=== PATIENT | female | born 1960 | race Caucasian/White ===

== ENCOUNTER 2018-08-03 09:36 | Emergency (ER) | payer MEDICARE, MEDICAID ==
[~2018-08-03] VITALS: Ht 167.6 cm; Wt 57.7 kg
[~2018-08-03 09:36] MED LIST: CLIN300C11 PO; NO HOME MEDS; ONDA4TAB12 PO; RANI150T44 PO
[2018-08-03 09:41] VITALS: BP 127/84
[2018-08-03] MEDS ORDERED: CLIN300C85 PO (10:00)
[2018-08-03] MEDS ORDERED: TRAM50TA2 PO (10:00)
[2018-08-03] MEDS ORDERED: traMADol 50MG tablet PO ONE (10:05)
== END 2018-08-03 10:14 | disposition home or self-care (01) ==
LOC: ER 09:36
DX: L03.113 Cellulitis of right upper limb (principal); Z90.49 Acquired absence of other specified parts of digestive tract; Z98.890 Other specified postprocedural states; Z60.2 Problems related to living alone; Z88.2 Allergy status to sulfonamides; Z88.5 Allergy status to narcotic agent; Z91.048 Other nonmedicinal substance allergy status; Z79.2 Long term (current) use of antibiotics; Z79.899 Other long term (current) drug therapy
CPT/HCPCS: 99284

== ENCOUNTER 2018-08-03 23:15 | Emergency (ER) | payer MEDICARE, MEDICAID ==
[~2018-08-03] VITALS: Ht 167.6 cm; Wt 57.7 kg
[~2018-08-03 23:15] MED LIST changes: +CLIN300C85 PO; +TRAM50TA2 PO
[2018-08-03 23:32] VITALS: BP 114/70
== END 2018-08-04 00:13 | disposition left against medical advice (07) ==
LOC: ER 23:16
DX: R11.0 Nausea (principal); Z53.21 Procedure and treatment not carried out due to patient leaving prior to being seen by health care provider

== ENCOUNTER 2018-09-24 18:58 | Emergency (ER) | payer MEDICARE, MEDICAID ==
[~2018-09-24] VITALS: Ht 162.6 cm; Wt 61.0 kg
[~2018-09-24 18:58] MED LIST changes: -TRAM50TA2 PO
[2018-09-24] MEDS ORDERED: morphine 4 MG/ML inj SYRINge IM ONE (19:20)
[2018-09-24] MEDS ORDERED: ondansetron 4mg rapidly disintigrating tab PO ONE (19:20)
[2018-09-24 19:51] LABS: INR 0.9 INR; PARTIAL THROMBOPLASTIN TIME 24 SECONDS (22-32); PROTHROMBIN TIME 9.6 SECONDS (9.0-12.0)
[2018-09-24 20:00] LABS: BASOPHILS # (AUTO) 0.1 X10'3 (0-0.2); BASOPHILS % (AUTO) 0.6 % (0-1); EOSINOPHILS # (AUTO) 0.2 X10'3 (0-0.9); EOSINOPHILS % (AUTO) 1.6 % (0-6); HEMATOCRIT 45.1 % (35.0-45.0); LYMPHOCYTES # (AUTO) 1.3 X10'3 (1.1-4.8); LYMPHOCYTES % (AUTO) 12.2 % (21-51); MEAN CORPUSCULAR HEMOGLOBIN 32.9 PG (27.0-31.0); MEAN CORPUSCULAR HGB CONC 33.3 % (33.0-36.5); MEAN CORPUSCULAR VOLUME 98.8 FL (78-98); MONOCYTES # (AUTO) 0.8 X10'3 (0-0.9); MONOCYTES % (AUTO) 7.7 % (2-12); NEUTROPHILS # (AUTO) 8.4 X10'3 (1.8-7.7); NEUTROPHILS % (AUTO) 77.9 % (42-75); PLATELET COUNT 242 X10'3 (140-440); RED BLOOD COUNT 4.56 X10'6 (4.20-5.60); RED CELL DISTRIBUTION WIDTH 14.5 % (11.5-14.5); WHITE BLOOD COUNT 10.8 X10'3 (4.5-11.0)
[2018-09-24 20:06] LABS: ALANINE AMINOTRANSFERASE 18 U/L (12-78); ALBUMIN 4.1 G/DL (3.4-5.0); ALKALINE PHOSPHATASE 72 IU/L (46-116); ANION GAP 14 (8-16); ASPARTATE AMINO TRANSFERASE 20 U/L (10-37); BILIRUBIN,TOTAL 0.8 MG/DL (0.1-1.0); BLOOD UREA NITROGEN 9 MG/DL (7-18); BUN/CREATININE RATIO 12.9 (6.6-38.0); CALCIUM 9.3 MG/DL (8.5-10.1); CHLORIDE 101 MMOL/L (99-107); GLUCOSE 123 MG/DL (70-104); LIPASE 264 U/L (73-393); SODIUM 138 MMOL/L (135-145); TOTAL CARBON DIOXIDE 23.3 MMOL/L (24-32); TOTAL PROTEIN 8.1 G/DL (6.4-8.2); eGFR 86 ML/MIN
[2018-09-24] MEDS ORDERED: potassium Cl 20 mEq SR tablet PO STA (20:24)
[2018-09-24] MEDS ORDERED: PANT-47 PO (20:28)
[2018-09-24] MEDS ORDERED: TRAM50TA2 PO (20:28)
[2018-09-24 20:50] VITALS: BP 152/104
== END 2018-09-24 20:52 | disposition home or self-care (01) ==
LOC: ER 18:58
DX: R10.13 Epigastric pain (principal); E87.6 Hypokalemia; Z90.49 Acquired absence of other specified parts of digestive tract; Z98.890 Other specified postprocedural states; Z88.2 Allergy status to sulfonamides; Z88.5 Allergy status to narcotic agent; Z88.8 Allergy status to other drugs, medicaments and biological substances; Z79.899 Other long term (current) drug therapy; Z60.2 Problems related to living alone
CPT/HCPCS: 36415; 71045; 74176; 80053; 83690; 84484; 85025; 85610; 85730; 93005; 96372; 99284; J2270